=== PATIENT | female | born 1995 | race Caucasian/White ===

== ENCOUNTER → 2023-05-29 13:23 | Outpatient (CLI) | payer OTHER, SELFPAY ==
--- NOTE | 2023-05-29 13:24 | DI.US.S_ITS ---
PROCEDURE: US OB <= 14 WEEKS FETUS INDICATIONS: SIZE AND DATES OUTSIDE/PRIOR DATING DATA: Last menstrual period (LMP): 03/19/2023. LMP-based estimated date of delivery (WILL): 12/24/2023 First dating scan (date and location): 05/29/2023 Estimated date of delivery (WILL) from first dating scan: 12/16/2023. The calculations are made using the ultrasound WILL of 12/16/2023. TECHNIQUE: Real-time scanning was performed of the fetus and maternal pelvic organs, with image documentation. COMPARISON: None. FINDINGS: Embryo: 4.4 cm, 11 weeks 2 days Heart rate: 169 Maternal organs: Ovaries are obscured by bowel gas.. IMPRESSION: Living 1st trimester intrauterine with crown-rump length and heartbeat measuring 11 weeks 2 days. We strive to produce accurate, complete, and clear reports of imaging services. To assist us in improving patient care, this report was composed using standard report templates and voice recognition software. Therefore, it may contain abnormal punctuation, insertions and/or omissions. Occasional wrong-word or sound-alike substitutions may occur. Though we review the report and make efforts to correct it, we do recommend that the report be read carefully in proper context to recognize any text inaccuracies. Dictated by: Vishal Joshi M.D. on 05/29/2023 at 16:16 Approved by: Vishal Joshi M.D. on 05/29/2023 at 16:18
== END ==
PROVIDERS: PCP Student in an Organized Health Care Education/Training Program; Referring Provider Student in an Organized Health Care Education/Training Program; Visit Provider Student in an Organized Health Care Education/Training Program
DX: Z34.01 Encounter for supervision of normal first pregnancy, first trimester (principal); Z3A.11 11 weeks gestation of pregnancy
CPT/HCPCS: 76801

== ENCOUNTER → 2023-06-06 13:41 | Outpatient (CLI) | payer OTHER, SELFPAY ==
[2023-06-06 14:20] LABS: Appearance Urine UA CLEAR; Bilirubin Urine UA NEGATIVE (NEGATIVE); Color Urine UA YELLOW; Glucose Urine UA NEGATIVE (Negative); Ketones Urine UA 1+ (NEGATIVE); Leukocyte Esterase Urine UA NEGATIVE (NEGATIVE); Nitrite Urine UA NEGATIVE (Negative); Occult Blood Urine UA NEGATIVE (Negative); Protein Urine UA NEGATIVE (Negative); Urobilinogen Urine UA 0.2 E.U./dL (0.2)
[2023-06-06 14:20] LABS: Add Manual Diff / Slide Review NO; Basophils Absolute Auto 0 /uL (0-100); Basophils Percent Auto 0.2 % (0-2); Eosinophils Absolute Auto 100 /uL (0-450); Eosinophils Percent Auto 1.7 % (2-4); Hematocrit 36.6 % (36-46); Hemoglobin 12.5 g/dL (12.0-16.0); Lymphocytes Absolute Auto 1700 /uL (1100-4500); Lymphocytes Percent Auto 19.1 % (25-40); Mean Corpuscular Hemoglobin 29.6 PG (26-34); Mean Corpuscular Volume 86.8 fL (80-100); Monocytes Absolute Auto 500 /uL (0-900); Monocytes Percent Auto 5.4 % (3-14); Neutrophils Absolute Auto 6500 /uL (1500-7000); Neutrophils Percent Auto 73.6 % (50-75); Platelet Count 279 X10^3/uL (150-400); Red Blood Cell Count 4.22 X10^6/uL (4.0-5.2); Red Cell Distribution Width 13.6 % (11.6-14.8); White Blood Cell Count 8.8 X10^3/uL (4.5-11.0)
[2023-06-07 08:54] LABS: RPR Screen Non Reactive (Non Reactive); Varicella IgG Antibody 976 index (Immune >165)
[2023-06-07 17:38] LABS: Hepatitis B Surface Antigen NEGATIVE s/c (NEGATIVE)
[2023-06-07 17:54] LABS: HIV 1 & 2 Ab/Ag 4th Gen Combo NEGATIVE (NEGATIVE); Hep C Virus Ab w/Reflex Quant NEGATIVE s/c (NEGATIVE)
== END ==
PROVIDERS: PCP Student in an Organized Health Care Education/Training Program; Referring Provider Student in an Organized Health Care Education/Training Program; Visit Provider Student in an Organized Health Care Education/Training Program
DX: Z34.00 Encounter for supervision of normal first pregnancy, unspecified trimester (principal)
CPT/HCPCS: 36415; 80055; 81003; 86787; 86803; 86850; 86900; 86901; 87086; 87389

== ENCOUNTER → 2023-06-19 11:18 | Outpatient (CLI) | payer OTHER, SELFPAY ==
[2023-06-19 12:05] LABS: Miscellaneous to LabCorp NATERA KIT
== END ==
PROVIDERS: PCP Student in an Organized Health Care Education/Training Program; Referring Provider Student in an Organized Health Care Education/Training Program; Visit Provider Student in an Organized Health Care Education/Training Program
DX: Z34.81 Encounter for supervision of other normal pregnancy, first trimester (principal); Z82.8 Family history of other disabilities and chronic diseases leading to disablement, not elsewhere classified; Z13.79 Encounter for other screening for genetic and chromosomal anomalies; Z31.438 Encounter for other genetic testing of female for procreative management; Z36.0 Encounter for antenatal screening for chromosomal anomalies; Z3A.10 10 weeks gestation of pregnancy
CPT/HCPCS: 36415

== ENCOUNTER → 2023-07-31 14:20 | Outpatient (CLI) | payer OTHER, SELFPAY ==
--- NOTE | 2023-07-31 14:21 | DI.US.S_ITS ---
PROCEDURE: US OB >= 14 WEEKS FETUS INDICATIONS: Anatomy scan OUTSIDE/PRIOR DATING DATA: Last menstrual period (LMP): 03/19/2023 LMP-based estimated date of delivery (WILL): 12/24/2023 First dating scan (date and location): 05/29/2023 Estimated date of delivery (WILL) from first dating scan: 12/16/2023 The calculations are made using the working WILL of 12/16/2023. TECHNIQUE: Real-time scanning was performed of the fetus, with image documentation and biometric measurements. Endovaginal scanning: Not indicated COMPARISON: None. FINDINGS: General: A single living intrauterine gestation is present. Presentation: Breech Placenta: Placental position is posterior, without previa. Amniotic fluid index: 14.3 cm, normal range is 5-24 cm. Single deepest vertical pocket is 4.0 cm. heart rate: 141 beats per minute. Maternal cervical canal: 3.4 cm long. Normal lower limit is 2.5 cm. biometrics: Biparietal diameter: 4.3 cm, 19 weeks, 0 day Head circumference: 16.7 cm, 19 weeks, 3 days Abdominal circumference: 15.5 cm, 20 weeks, 5 days Femur length: 3.1 cm, 19 weeks, 4 days Clinically estimated gestational age: 20 weeks, 2 days Composite gestational age from present scan: 19 weeks, 5 days Estimated weight and percentile: 330 g, 33% Anatomic survey: Neuro: Ventricles are non-dilated at less than 10 mm. Cisterna magna is normal at 3-11 mm. Cerebellum is normal in size and morphology. Nuchal skin fold: Normal at less than 6 mm between 14-21 weeks gestational age. Face: Nose and lips, facial profile are normal. Spine: No evidence for spina bifida. Heart: 4-chambered heart is present, with normal ventricular outflow tracts. Diaphragm: Diaphragm is intact. Stomach: Left-sided stomach is present. Kidneys: No hydronephrosis. Normal is less than 5 mm in 2nd trimester, less than 7 mm in 3rd trimester. Cord: 3-vessel cord has orthotopic insertion. Bladder: Normal in size. Extremities: All 4 extremities identified. IMPRESSION: 1. Single live intrauterine gestation with fetus in breech presentation. heart rate is 141 beats per minute. Normal amount of amniotic fluid. JU equals 14.3 cm. Estimated weight is 33%. Normal growth. 2. Normal anatomic survey. We strive to produce accurate, complete, and clear reports of imaging services. To assist us in improving patient care, this report was composed using standard report templates and voice recognition software. Therefore, it may contain abnormal punctuation, insertions and/or omissions. Occasional wrong-word or sound-alike substitutions may occur. Though we review the report and make efforts to correct it, we do recommend that the report be read carefully in proper context to recognize any text inaccuracies. Dictated by: Jean-Pierre Garcia M.D. on 07/31/2023 at 16:48 Approved by: Jean-Pierre Garcia M.D. on 07/31/2023 at 16:50
== END ==
LOC: US 14:21
PROVIDERS: PCP Student in an Organized Health Care Education/Training Program; Referring Provider Student in an Organized Health Care Education/Training Program; Visit Provider Student in an Organized Health Care Education/Training Program
DX: Z36.89 Encounter for other specified antenatal screening (principal); Z3A.19 19 weeks gestation of pregnancy
CPT/HCPCS: 76811

== ENCOUNTER → 2023-09-11 15:35 | Outpatient (CLI) | payer OTHER, SELFPAY ==
[2023-09-19 12:48] LABS: Hematocrit 34.3 % (36-46); Hemoglobin 11.7 g/dL (12.0-16.0)
[2023-09-19 13:22] LABS: GTT (PREG) 1 Hour PP 50gm Dose 162 mg/dL (76-139)
== END ==
LOC: LAB 15:37
PROVIDERS: PCP Student in an Organized Health Care Education/Training Program; Referring Provider Family Medicine; Visit Provider Family Medicine
DX: Z34.92 Encounter for supervision of normal pregnancy, unspecified, second trimester (principal); Z3A.24 24 weeks gestation of pregnancy
CPT/HCPCS: 82950; 85014; 85018

== ENCOUNTER → 2023-10-24 09:57 | Outpatient (CLI) | payer OTHER, SELFPAY ==
[2023-10-24 12:09] LABS: Glucose Fasting Gestational 105 mg/dL (76-95)
[2023-10-24 12:18] LABS: Glucose 1 Hour Gest 197 mg/dL (76-180)
[2023-10-24 13:21] LABS: Glucose Tol Interp,Gestational INTERPRETATION
[2023-10-24 14:08] LABS: Glucose 3 Hour Gest 141 mg/dL (76-140)
[2023-10-24 14:27] LABS: Glucose 2 Hour Gest 128 mg/dL (76-155)
== END ==
PROVIDERS: PCP Student in an Organized Health Care Education/Training Program; Referring Provider Family Medicine; Visit Provider Family Medicine
DX: Z34.00 Encounter for supervision of normal first pregnancy, unspecified trimester (principal)
CPT/HCPCS: 36415; 82951; 82952

== ENCOUNTER → 2023-11-01 13:51 | Outpatient (CLI) | payer OTHER, SELFPAY ==
--- NOTE | 2023-11-01 16:46 | DIAB.GDA ---
Initial Gestational Diabetes Assessment Name: Araceli Love Date: 11/01/23 Time: 2-3p Dx: Gestational Diabetes Provider: Ruma WILL: 12/16/23 Weeks: 33 Araceli presents today for initial GDM visit. Reports FH of T2DM with both parents. Mother passed in June. Today she brings a [employer] brand meter because pharmacy brand meter/supplies were expensive, seemingly not covered by insurance, which seems inaccurate. Diet recall indicates high CHO intake. Has recently cut out soda, though occasionally has soda at work. 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 Replaced soda with sweetened iced tea, uses syrup to jag. Reports inconsistent schedule with eating. Today her main concerns is how to reduce risks to baby and reduce chances of c section per report. Diet Recall: 930-1030a: eng muff with PB or egg or steak with sweet tea 1-3p: at work, buckley salad; at home, left overs: meat, pasta x 1-2c sn: nothing or chips or 1/2c cheezits (give her reflux) OR q other week gummy worms 6-9p: steak or burger with 1-2c pasta OR 1/2-1c rice sn: nothing or 6 chocolates with sweetened sparkling water Radha: 20-24oz milk, 48-60oz water, 12oz soda occasionally, sweetened tea or sparkling water Limited veggies, though sometimes avocado, tomatoes, peas, onion. Some snacking on fruit, ie berries. Anthropometrics: Ht: 66-67 Wt: 202.5# 10/2023 at OB Prepregnancy wt: 150# reported Physical Activity: 30-60 min dog walks most days Self-Monitoring Blood Glucose: Brought meter today. Return demo indicated BG result of 130mg/dl 3 hours pc after 2 eng muffins with pb and sparkling water with syrup (70g CHO or more) Diabetes Medications: None Pertinent Labs: screen: 162mg/dl OGTT: 105H, 197H, 128, 141H Nutrition Rx: Carbohydrates: Daily: 180g Meal: 45g (60g max) lunch and dinner; 30g breakfast Snack: 15-30g Nutrition Diagnosis: Altered nutrition related lab value r/t GDM dx aeb recent OGTT Excessive CHO intake r/t nutrition knowledge deficit and new dx GDM aeb OGTT and diet recall Self monitoring deficit r/t knowledge deficit about SMBG aeb pt report Intervention: This participant was very receptive. Provided appropriate educational handouts. Discussed the following topics: GDM pathophysiology and impact of hyperglycemia on mom and baby Risk for T2DM for mom and baby in the future Ways to reduce risk T2DM Plate Method, meal timing, carb counting, pairing macronutrients and spreading out CHO for better BG management Blood glucose goals (FBG: <95 and 1 hour <140 mg/dL); importance of checking 4x per day (FBG and pc) Impact of macronutrients on blood glucose Recommended servings for carbohydrates at meals and snacks Brainstormed appropriate meal plan based on her food preferences Encouraged calling insurance regarding SMBG supplies Role of physical activity and following provider guidelines for safety Goals: check out sugar free beverages in moderation Try to eat q 3-4 hours Aim for 45-60g CHO at lunch and dinner Start checking BG 4x per day Call insurance regarding SMBG supplies Follow-up: ROXANN CHO follow-up in one week via messaging SMBG results and 2 weeks 1:1 appt Mayte Merino RDN, TAMMIE Certified Diabetes Care and Charge Entry T: [phone] F: [phone] [email or web address] Thank you for this referral
== END ==
PROVIDERS: PCP Student in an Organized Health Care Education/Training Program; Referring Provider Family Medicine
DX: O24.419 Gestational diabetes mellitus in pregnancy, unspecified control (principal); Z3A.33 33 weeks gestation of pregnancy; Z71.3 Dietary counseling and surveillance
CPT/HCPCS: 97802

== ENCOUNTER → 2023-11-14 15:10 | Outpatient (CLI) | payer OTHER, SELFPAY ==
[2023-11-15 16:18] LABS: Strep Grp B PCR NEG for Grp B Strep
== END ==
PROVIDERS: PCP Student in an Organized Health Care Education/Training Program; Visit Provider Student in an Organized Health Care Education/Training Program
DX: R82.71 Bacteriuria (principal); Z3A.35 35 weeks gestation of pregnancy
CPT/HCPCS: 87653

== ENCOUNTER → 2023-11-14 16:22 | Outpatient (CLI) | payer OTHER, SELFPAY ==
[2023-11-14 17:54] LABS: Add Manual Diff / Slide Review NO; Basophils Absolute Auto 0 /uL (0-100); Basophils Percent Auto 0.2 % (0-2); Eosinophils Absolute Auto 200 /uL (0-450); Eosinophils Percent Auto 1.1 % (2-4); Hematocrit 39.8 % (36-46); Hemoglobin 13.2 g/dL (12.0-16.0); Lymphocytes Absolute Auto 1900 /uL (1100-4500); Lymphocytes Percent Auto 14.2 % (25-40); Mean Corpuscular HGB Conc 33.2 % (30-36); Mean Corpuscular Hemoglobin 29.1 PG (26-34); Mean Corpuscular Volume 87.5 fL (80-100); Monocytes Absolute Auto 1000 /uL (0-900); Monocytes Percent Auto 7.3 % (3-14); Neutrophils Absolute Auto 10200 /uL (1500-7000); Neutrophils Percent Auto 77.2 % (50-75); Platelet Count 275 X10^3/uL (150-400); Red Blood Cell Count 4.55 X10^6/uL (4.0-5.2); Red Cell Distribution Width 14.3 % (11.6-14.8); White Blood Cell Count 13.2 X10^3/uL (4.5-11.0)
[2023-11-14 18:11] LABS: HEMOLYSIS < 15 (0-50); Potassium 3.8 mmol/L (3.4-5.1)
[2023-11-14 18:12] LABS: Alanine Aminotransferase 13 IU/L (<35); Albumin 3.6 g/dL (3.5-5.0); Albumin Globulin Ratio 1.2 (1.0-2.8); Alkaline Phosphatase 104 U/L (38-126); Aspartate Aminotransferase 20 IU/L (14-36); Bilirubin Total 0.4 mg/dL (0.2-1.3); Blood Urea Nitrogen 11 mg/dL (7-17); Calcium 8.9 mg/dL (8.4-10.2); Carbon Dioxide 23 mmol/L (22-32); Chloride 107 mmol/L (98-107); Estimated Glomerular Filt Rate > 60 mL/min (>60); Globulin 2.9 g/dL (1.7-4.1); Glucose 109 mg/dL (70-100); Sodium 132 mmol/L (137-145); Total Protein 6.5 g/dL (6.3-8.2)
--- NOTE | 2023-12-06 15:24 | DIAB.GDFU ---
Follow-up Gestational Diabetes Assessment Name: Araceli Love Date: 11/14/23 Time: 435-520p Dx: Gestational Diabetes Provider: Ruma WILL: 12/16/23 Weeks: 35 Araceli presents today for GDM visit. Received a new meter covered by insurance. Not needing to pay out of pocket for supplies now. Improved sleep recently, which improved FBG. Also reports some FBG not 8+ hours fasting. Reduced milk and cut out sugar beverages. Increased water. Diet Recall: 11a: huevos rancheros x 4 tortillas with egg and salsa OR icelandic yogurt with fruit and honey sn: low sugar ice cream 230-330p: goat varma with chickpeas and potato OR eggs, cheese, 1-2 tortillas 5-6p: veggies with dip OR handful of grapes Or pear OR caprese salad 9-11p: goat varma OR caprese salad OR fajita x 1-2 tortilla Radha: 80oz water, SF ICE drink, sometimes milk Anthropometrics: Ht: 66-67 Wt: 200# Today at OB Prepregnancy wt: 150# reported Physical Activity: Less dog walking, moving more at home and with a friend. Most activity is ADLs. Self-Monitoring Blood Glucose: Notices FBG are elevated with poor sleep. Last three days with better sleep FBG are in range. Encouraged her to keep a close eye on FBG and if elevated contact OB. Date Pre Post Pre Post Pre Post Notes 11/06 88 90 2h 116 5/1 105 154 120 96 2h 5/2 99 107 2h 131 96 5/3 105 116 117 123 5/4 97 131 106 145 5/5 90 115 2h 129 5/6 86 130 101 134 5/7 90 108 Diabetes Medications: None Pertinent Labs: screen: 162mg/dl OGTT: 105H, 197H, 128, 141H Nutrition Rx: Carbohydrates: Daily: 180g Meal: 45g (60g max) lunch and dinner; 30g breakfast Snack: 15-30g Nutrition Diagnosis: Altered nutrition related lab value r/t GDM dx aeb recent OGTT Excessive CHO intake r/t nutrition knowledge deficit and new dx GDM aeb OGTT and diet recall- improved Self monitoring deficit r/t knowledge deficit about SMBG aeb pt report - improved Intervention: This participant was very receptive. Provided appropriate educational handouts. Discussed the following topics: Recent blood sugar results and impact of food and hormones Role of sleep on BG Review of macronutrient recommendations during Benefits, resources, and nutrition for recommendations for nutrition and physical activity recommendations for T2DM risk reduction OGTT at 6-12 weeks Checking blood sugars twice per week (goal: fasting <100 mg/dL and 2 hour pc <140 mg/dL) until 6 week check-up HgA1c q 1-3 years. Goals: check out sugar free beverages in moderation- met Try to eat q 3-4 hours- met Aim for 45-60g CHO at lunch and dinner- met Start checking BG 4x per day - met Call insurance regarding SMBG supplies - met work on sleep hygeine- new Aim to be active everyday- new Follow-up: ROXANN CHO follow-up prn. Given change in FBG, would rec low threshold for insulin therapy prn. If FBG continue to be in goal with improved sleep no need to medication intervention. Discussed this in depth with pt and she agrees to contact provider if FBG start trending >95 2-3 x per week or more. Mayte Merino, ROXANN, CDCES Certified Diabetes Care and Creative Services Specialist T: [phone] F: [phone]
== END ==
PROVIDERS: PCP Student in an Organized Health Care Education/Training Program; Referring Provider Student in an Organized Health Care Education/Training Program
DX: R10.11 Right upper quadrant pain (principal); R82.71 Bacteriuria; Z3A.35 35 weeks gestation of pregnancy
CPT/HCPCS: 36415; 80053; 85025; 87653

== ENCOUNTER → 2023-11-21 07:21 | Outpatient (CLI) | payer OTHER, SELFPAY ==
--- NOTE | 2023-11-21 07:30 | DI.US.S_ITS ---
PROCEDURE: US OB FOLLOW UP INDICATIONS: Growth scan needed for Gestational Diabetes OUTSIDE/PRIOR DATING DATA: Last menstrual period (LMP): March 19, 2023. LMP-based estimated date of delivery (WILL): December 24, 2023. First dating scan (date and location): May 29, 2023. Estimated date of delivery (WILL) from first dating scan: December 16, 2023 TECHNIQUE: Real-time scanning was performed of the fetus, with image documentation and biometric measurements. Endovaginal scanning: Not performed COMPARISON: None. FINDINGS: General: A single living intrauterine gestation is present. Presentation: Vertex. Placenta: Placental position is posterior , without previa. Amniotic fluid index: 8.8 cm, normal range is 5-24 cm. Single deepest vertical pocket is 2.9 cm. heart rate: 150 beats per minute. Maternal cervical canal: 3.5 cm long. Normal lower limit is 2.5 cm. biometrics: Biparietal diameter: 9.1 cm, 36 weeks, 5 days Head circumference: 32.2 cm, 36 weeks 2 days Abdominal circumference: 32.4 cm, 36 weeks 2 days Femur length: 7.1 cm, 36 weeks 3 days Clinically estimated gestational age: 36 weeks 3 days Composite gestational age from present scan: 36 weeks 3 days Estimated weight and percentile: 2917 g, 51% Other: Not applicable. IMPRESSION: 1. Single live intrauterine gestation with a composite gestational age of 36 weeks 3 days which is concordant with dates by initial scan. 2. Estimated weight percentile is 51%. We strive to produce accurate, complete, and clear reports of imaging services. To assist us in improving patient care, this report was composed using standard report templates and voice recognition software. Therefore, it may contain abnormal punctuation, insertions and/or omissions. Occasional wrong-word or sound-alike substitutions may occur. Though we review the report and make efforts to correct it, we do recommend that the report be read carefully in proper context to recognize any text inaccuracies. Dictated by: Balbina Pulliam M.D. on 11/21/2023 at 8:57 Approved by: Balbina Pulliam M.D. on 11/21/2023 at 9:00
== END ==
LOC: US 07:21
PROVIDERS: PCP Student in an Organized Health Care Education/Training Program; Referring Provider Student in an Organized Health Care Education/Training Program; Visit Provider Student in an Organized Health Care Education/Training Program
DX: Z36.4 Encounter for antenatal screening for fetal growth retardation (principal); O24.419 Gestational diabetes mellitus in pregnancy, unspecified control; Z3A.36 36 weeks gestation of pregnancy
CPT/HCPCS: 76816

== ENCOUNTER 2023-12-14 11:37 | Observation (INO) | payer OTHER, SELFPAY | END 2023-12-14 12:34 | disposition home or self-care (01) | LOC: LABOR 12:41 | PROVIDERS: Admitting Provider Student in an Organized Health Care Education/Training Program; PCP Student in an Organized Health Care Education/Training Program; Referring Provider Student in an Organized Health Care Education/Training Program; Visit Provider Student in an Organized Health Care Education/Training Program | DX: O36.8130 Decreased fetal movements, third trimester, not applicable or unspecified (principal); Z3A.39 39 weeks gestation of pregnancy | CPT/HCPCS: 59025; G0378; G0379 ==

== ENCOUNTER 2023-12-16 05:39 | Observation (INO) | payer OTHER, SELFPAY | END 2023-12-16 09:45 | disposition home or self-care (01) | LOC: LABOR 10:15 | PROVIDERS: Admitting Provider Student in an Organized Health Care Education/Training Program; PCP Student in an Organized Health Care Education/Training Program; Referring Provider Student in an Organized Health Care Education/Training Program; Visit Provider Student in an Organized Health Care Education/Training Program | DX: O47.1 False labor at or after 37 completed weeks of gestation (principal); O24.419 Gestational diabetes mellitus in pregnancy, unspecified control; Z3A.40 40 weeks gestation of pregnancy | CPT/HCPCS: 59025; 59050; G0378; G0379 ==

== ENCOUNTER 2023-12-17 11:22 | Inpatient (IN) | payer OTHER, SELFPAY ==
[2023-12-17 12:43] LABS: Add Manual Diff / Slide Review NO; Basophils Absolute Auto 200 /uL (0-100); Eosinophils Absolute Auto 200 /uL (0-450); Eosinophils Percent Auto 0.8 % (2-4); Hematocrit 39.4 % (36-46); Hemoglobin 13.3 g/dL (12.0-16.0); Lymphocytes Absolute Auto 2200 /uL (1100-4500); Mean Corpuscular HGB Conc 33.8 % (30-36); Mean Corpuscular Hemoglobin 29.2 PG (26-34); Mean Corpuscular Volume 86.3 fL (80-100); Monocytes Absolute Auto 1400 /uL (0-900); Monocytes Percent Auto 7.3 % (3-14); Neutrophils Absolute Auto 14700 /uL (1500-7000); Neutrophils Percent Auto 78.9 % (50-75); Platelet Count 277 X10^3/uL (150-400); Red Blood Cell Count 4.56 X10^6/uL (4.0-5.2); Red Cell Distribution Width 14.7 % (11.6-14.8); White Blood Cell Count 18.6 X10^3/uL (4.5-11.0)
[2023-12-17] MEDS: LACTATED RINGERS 1,000 ML 100 ML IV ×4 (12:45→19:05)
--- NOTE | 2023-12-17 13:00 | P.HPOB_ITS ---
OB HPI Date/Time Date of admission: 12/17/23 Date Patient Seen: 12/17/23 Time Patient Seen: 01:00 History of Present Condition Chief complaint: WILL Calculator 2 Estimated Delivery Date Method Current WG Current Estimate 12/16/23 Ultrasound #1 40w 1d Other Estimates 12/24/23 LMP (Certain) 39w 0d : 1 Para: 0 Narrative: G1 at 40w1d here with ongoing contractions for past 36 hours. She was seen yesterday in the birthing center and was found to be fingertip. She was sent home and is back today with cervical progression to 4 cm and worsening contractions. is complicated by GDMA1. She reports no loss of fluid or bleeding. Good movement. care: good care Dating criteria OB: based on LMP only Ultrasounds: normal 1st trimester US and normal mid trimester US Obstetrical complications: gestational diabetes Medical complications OB: none Preadmission Labs Last OB Lab Results: 2 Blood Type O Positive 06/06/23 13:48 Antibody Screen Negative 06/06/23 13:48 Hematocrit 39.4 % (36-46) 12/17/23 12:25 Hemoglobin 13.3 g/dL (12.0-16.0) 12/17/23 12:25 Hepatitis B Surface Antigen Negative s/c (NEGATIVE) 06/06/23 13 :48 Hepatitis C Antibody Negative s/c (NEGATIVE) 06/06/23 13:48 Rubella Antibody 200.0 IU/mL (>15) 06/06/23 13:48 Varicella-Zoster IgG Antibody 976 index (Immune >165) 06/06/23 13:48 Glucose 1 Hour 162 mg/dL (76-139) H 09/19/23 12:15 Group B Streptococcus (PCR) Neg for grp b strep 11/14/23 15:10 Glucose Tolerance Testin hr Genetic Screens: Cell-free DNA: Normal Evaluation Evaluation Baseline heart rate: 145 Variability: Average (6-10) monitor accelerations: Present Monitor Decelerations: Absent Contraction Frequency (minutes): 10 Category of Tracing: Reactive Status: Category l Dilation (cm): 4 Effacement (%): 80 Dilation: 3-4 cm Effacement: >/=80% station: -1 Position of cervix: mid Consistency: soft Barbour score: 10 [facility] Medical History (Updated 11/14/23 @ 16:04 by Ashley Spencer MD) Gestational diabetes Depression Anxiety Acne Vasculitis Surgical History (Updated 05/08/23 @ 09:05 by Hoa Levy, RN) No pertinent past surgical history Family History (Updated 05/08/23 @ 09:47 by Hoa Levy, RN) Mother Fibromyalgia Diabetes mellitus Osteoarthritis Cervical cancer Kidney failure Antibiotic-resistant bacterial infection Irritable bowel syndrome Clostridioides difficile carrier Sister Neurofibromatosis Cancer Brain tumor Developmental disability Brother Schwannomatosis Father Diabetes mellitus Irritable bowel syndrome Rectal cancer Abdominal hernia Depression Grandmother Lung cancer Grandfather Alcoholism Lung cancer Brother Depression Anxiety Aunt Breast cancer Uncle Kidney failure Diabetes mellitus Social History marital status: number of children: 0 household members: spouse and family lives independently: Yes caregiver/support person: Yes housing: house pets and animals: Yes (2 cats, guinea pig, managing pet care) education level: college occupational status: employed current occupational exposures/hazards: No special jennifer needs: No travel history: over 6 months ago seatbelt use: always water heater temp set < 120 deg: Yes working smoke detector in home: Yes fire extinguisher in home: No carbon monox detector in home: Yes firearms in home: Yes (mother's gun, pt is unsure how it is kept. Will get a gun safe.) do you feel safe at home: Yes Smoking Status: Former smoker second hand exposure: Yes ( vapes but not around pt) alcohol intake: former substance use type: marijuana during the past year weight has: increased > 10 lbs well-balanced diet: about half the time daily servings fruits/ve-4 caffeine: Yes (12 oz soft drink, occasional coffee daily) Type(s) of exercise: none Meds Home Medications and Allergies Home Medications Medication Instructions Recorded Confirmed Type vitamin-ferrous sulfate tab PO 05/08/23 12/12/23 History 27 mg iron-folic acid 0.8 mg tablet albuterol sulfate 90 mcg/actuation 2 puff inhalation Q6H PRN 05/22/23 12/12/23 Rx aerosol inhaler shortness of breath or wheezing #8.5 grams ondansetron 4 mg disintegrating 4 mg PO Q8H PRN nausea and 10/23/23 12/12/23 Rx tablet vomiting #30 tabs Glucometer #1 ea 10/27/23 12/12/23 Rx glucose test strips #400 ea 10/27/23 12/12/23 Rx lancet #400 ea 10/27/23 12/12/23 Rx sharps container #1 10/27/23 12/12/23 Rx Allergies Allergy/AdvReac Type Severity Reaction Status Date / Time No Known Drug Allergies Allergy Verified 12/12/23 14:48 OB Exam Vital signs Blood Pressure: 127/78 Pulse Rate: 94 Objective Labs 12/17/23 12:25 12/17/23 12:25 Assessment and Plan Assessment and Plan Assessment and Plan narrative: G1 at 40w1d here with spontaneous labor.. complicated by GDMA1. GBS negative. /-1. Membranes intact. -proceed augmentation with pitocin as contractions have spaced -patient requesting epidural at this time
[2023-12-17 13:08] LABS: Alanine Aminotransferase 13 IU/L (<35); Albumin 3.6 g/dL (3.5-5.0); Albumin Globulin Ratio 1.2 (1.0-2.8); Alkaline Phosphatase 137 U/L (38-126); Aspartate Aminotransferase 19 IU/L (14-36); BUN Creatinine Ratio 16.3 (6-22); Bilirubin Total 0.4 mg/dL (0.2-1.3); Blood Urea Nitrogen 8 mg/dL (7-17); Calcium 9.2 mg/dL (8.4-10.2); Carbon Dioxide 19 mmol/L (22-32); Chloride 110 mmol/L (98-107); Estimated Glomerular Filt Rate > 60 mL/min (>60); Glucose 108 mg/dL (70-100); HEMOLYSIS < 15 (0-50); Potassium 4.1 mmol/L (3.4-5.1); Sodium 134 mmol/L (137-145); Total Protein 6.6 g/dL (6.3-8.2)
[2023-12-17 13:16] VITALS: BP 127/78; PULSE 94
--- NOTE | 2023-12-17 14:08 | PM.AN.REGBLK ---
Regional Block Pre-procedure Procedure: Continuous Lumbar Epidural for L&D (with dural puncture) Attending OB provider: Ashley Spencer PMH/JOVANNY narrative: 28yo female at 40 weeks 1 day in labor requesting epidural. See pre-anesthesia evaluation for further details. ASA Class: II Labs: Hct 39.4 % (36-46) 12/17/23 12:25 Plt Count 277 X10^3/uL (150-400) 12/17/23 12:25 Medications: Current Medications Generic Name Dose Route Start Last Admin Trade Name Freq PRN Reason Stop Dose Admin Carboprost Tromethamine 250 mcg 12/17/23 13:06 Carboprost 250 Mcg/Ml Ampul IM Q90M PRN Bleeding Diphenhydramine HCl 25 mg 12/17/23 14:06 Diphenhydramine 50 Mg/Ml Vial IV Q10M PRN Pruritis Ephedrine Sulfate 10 mg 12/17/23 14:06 Ephedrine 50 Mg/Ml Vial IV Q5M PRN Blood pressure decrease more than 20% of baseline. Fentanyl 50 mcg 12/17/23 13:06 Fentanyl 100 Mcg/2 Ml Inj IV Q1H PRN Pain, Moderate (4-6) Lactated Ringer's 1,000 mls @ 100 mls/hr 12/17/23 13:15 Lactated Ringers IV CONT DIONICIO Oxytocin/Lactated Ringer's 30 unit in 500 mls @ 200 mls/hr 12/17/23 13:06 Oxytocin Premix IV CONT PRN Bleeding Protocol Tranexamic Acid 1,000 mg/ 100 mls @ 200 mls/hr 12/17/23 13:06 Sodium Chloride IV NOW PRN Bleeding Oxytocin/Lactated Ringer's 30 unit in 500 mls @ 2 mls/hr 12/17/23 13:15 Oxytocin Premix IV TITRATE DIONICIO Protocol 2 MILLIUNIT/MIN Lactated Ringer's 1,000 mls @ 100 mls/hr 12/17/23 13:15 Lactated Ringers IV CONT DIONICIO FENT 2MCG/ML BUPIV 0.125% EPI 200 mcg in 100 mls @ 6 mls/hr 12/17/23 14:15 Fentanyl/Bupiv/Ns 2mcg/Ml - 0.125% EPIDURAL CONT DIONICIO Lidocaine HCl 20 ml 12/17/23 13:06 Lidocaine 1% 20 Ml INJ INTRA-OP PRN Post Delivery Methylergonovine Maleate 0.2 mg 12/17/23 13:06 Methylergonovine 0.2 Mg Tablet PO Q6HR PRN Heavy Bleeding Methylergonovine Maleate 0.2 mg 12/17/23 13:06 Methylergonovine 0.2 Mg/Ml Vial IM NOW PRN Bleeding Misoprostol 800 mcg 12/17/23 13:06 Misoprostol 200 Mcg Tablet DC NOW PRN Bleeding Misoprostol 400 mcg 12/17/23 13:06 Misoprostol 200 Mcg Tablet SL NOW PRN Bleeding Nalbuphine HCl 2.5 mg 12/17/23 14:06 Nalbuphine 20 Mg/Ml Ampul IV Q10M PRN Pruritis Naloxone HCl 0.2 mg 12/17/23 13:06 Naloxone 0.4 Mg/Ml Vial IV Q2MIN PRN Opiate Reversal Ondansetron HCl 4 mg 12/17/23 13:06 Ondansetron 4 Mg/2 Ml Inj IV Q4HR PRN Nausea And Vomiting Oxytocin 10 unit 12/17/23 13:06 Oxytocin 10 Unit/Ml Vial IM NOW PRN Bleeding Sodium Chloride 10 ml 12/17/23 21:00 Sodium Chloride 0.9% Flush IV BID DIONICIO Sodium Chloride 10 ml 12/17/23 13:06 Sodium Chloride 0.9% Flush IV PRN PRN Flush Sodium Chloride 10 ml 12/17/23 21:00 Sodium Chloride 0.9% Flush IV BID DIONICIO Sodium Chloride 10 ml 12/17/23 14:06 Sodium Chloride 0.9% Flush IV PRN PRN Flush Allergies: Allergies Allergy/AdvReac Type Severity Reaction Status Date / Time No Known Drug Allergies Allergy Verified 12/12/23 14:48 Procedure Insertion date: 12/17/23 Insertion time: 13:47 Prep/Local: 1% lidocaine (Chloraprep) Interspace: L3-4 Patient position: sitting (Time-out at 13:40) Needle: 18 gauge Hustead (22g 5 Yumi for dural puncture prior to catheter placement) Loss of resistance with: saline SABRA at (cm): 6 Catheter placed at SKIN (cm): 14 Catheter in SPACE (cm): 8 Insertion: No CSF, No Blood, No Paresthesia with insertion, No Paresthesia with injection and No Test dose reaction Initial Medications TEST DOSE time: 13:48 TEST DOSE: 1.5% lidocaine with epinephrine 1:200k (mL): 3 BOLUS DOSE time: 13:49 BOLUS DOSE (mL): 2 BOLUS DOSE med: other (Same as test dose; also gave 3 ml of 0.125% bupiv with fentanyl at 14:00 after infusion connected to epidural catheter) Infusion INFUSION: 0.125% bupivacaine and with fentanyl 2 mcg/mL Initial rate (mL/hr): 8 Subsequent interventions: 14:05 Pt reports contraction pain decreased from 8/10 to 1-2/10. Able to move BLE and appears comfortable. Post-procedure Anesthesia date START: 12/17/23 Anesthesia time START: 14:40 Anesthesia date END: 12/17/23 Anesthesia time END: 21:58 Post-procedure Anesthesia Assessment: Yes CV function: HR/BP stable, Yes Resp function: RR/sat/airway adequate, Yes Post-op hydration adequate, Yes Pain control adequate, Yes Nausea & vomiting absent, Yes Temperature > 36 C, Yes Mental status appropriate and No Anesthesia complications
[2023-12-17] MEDS: OXYTOCIN PREMIX 30 UNIT/500 ML PLAST..BAG IV (14:28)
--- NOTE | 2023-12-17 17:06 | PM.OBPNLAB ---
Date/Time Date Patient Seen: 12/17/23 Time Patient Seen: 17:00 Pain Control Pain control: epidural Pelvic Exam Dilation (cm): 7 Effacement (%): 80 station: -1 Amniotic membrane status: Ruptured Comments: AROM at 1700 Contractions Pitocin rate (mU/min): 4 Contraction frequency (min): 4 Contraction duration (min): 1 Contraction pattern: Regular Contraction intensity: Moderate Status status: Category l Heart Rate Baseline: 145 Monitor Accelerations: Present Monitor Decelerations: Late (one late following rupture of membranes) Monitor Variability: Moderate Assessment and Plan Assessment: active labor Plan: continuous present management
[2023-12-17 17:49] VITALS: BP 132/69
[2023-12-17] MEDS: FENT 2MCG/ML BUPIV 0.125% EPI 200 MCG/100 ML PLAST..BAG 6 MCG EPIDURAL (19:04)
[2023-12-17] MEDS: FAMOTIDINE 20 MG/2 ML VIAL IV (21:42)
--- NOTE | 2023-12-17 22:52 | P.PCNOB_ITS ---
Events: Gestational Diabetes Labor & Delivery Delivery date: 12/17/23 Delivery augmentation: rupture of membranes and pitocin Delivery monitor: external FHT Route of delivery: L&D Laceration Description: Perineal - 3rd Degree Delivery repair: vicryl Estimated blood loss (mL): 120 Anesthesia Type: Epidural Narrative: Patient was found to be complete at approximately 6:45pm. She started pushing shortly after 7pm. She pushed effectively for 3 hours. With ongoing efforts, isabela by delivered in the OA position with terminal meconium. Pitocin was started 2 minutes after delivery. After the cord had stopped pulsating, it was double clamped and the father cut the cord. Placeta delivered with external fundal massage at 15 minutes post delivery. There was a third degree laceration that was repaired with vicryl suture. A finger was placed in the anus to ensure there was no 4th degree laceration. Fundus firm after repair was complete. Routine care. Plan for aftercare: Routine care
[2023-12-18] MEDS: ACETAMINOPHEN 325 MG TABLET 650 MG PO ×2 (00:42→10:07)
[2023-12-18] MEDS: IBUPROFEN 600 MG TABLET PO ×2 (00:43→10:06)
[2023-12-18] MEDS: DERMOPLAST SPRAY 20% 60 ML 1 SPRAY TOP (00:43)
[2023-12-18] MEDS: MAGNESIUM HYDROXIDE 30 ML UDC PO (00:43)
[2023-12-18] MEDS: OXYCODONE IR 5 MG TABLET PO (00:43)
[2023-12-18] MEDS: PRENATAL VIT,CALC/IRON/FOLIC 1 TABLET 1 TAB PO (10:06)
[2023-12-18] MEDS: DOCUSATE 100 MG CAPSULE PO (10:06)
--- NOTE | 2023-12-18 10:52 | PM.OBDS.1 ---
Discharge Providers Provider Date of admission: 12/17/23 11:22 Discharge Date: 12/18/23 Primary care physician: Ashley Spencer MD Consults: 12/17/23 13:06 Consult to Anesthesiology Urgent Comment: Consulting Provider: Anesthesiologist Reason for consultation: Epidural 12/18/23 22:49 Consult to Personal Service Workers Routine Comment: Discharge provider: Ashley Spencer MD Summary Hospital Course Date Patient Seen: 12/18/23 Time Patient Seen: 09:30 Diagnoses: Term , normal spontaneous vaginal delivery Hospital Course: Patient presented with spontaneous labor and borderline elevated blood pressures. Labs normal without signs of pre-eclampsia. Contractions spaced, pitocin started. AROM performed with clear fluid. Patient progressed to complete and pushed for 3 hours. She had a 3rd degree tear that was repaired with suture. She recovered well and pain was well tolerated. She is without difficulty. Peripartum Data Infant Delivery Method: Natural Vaginal Laceration Description: Perineal - 3rd Degree complications: none Discharge Diagnosis (1) Vaginal delivery: Status: Acute Status at Discharge Cognitive/behavioral status at discharge: oriented Functional status at discharge: independent ambulation Overall status at discharge: patient is back to baseline Time Spent with Patient Time attestation: Total time spent providing and/or coordinating discharge services: Time spent: Greater than 30 minutes Objective Labs 12/17/23 12:25 12/17/23 12:25 Labs: Laboratory Results - last 24 hr 12/17/23 12:25 WBC 18.6 H RBC 4.56 Hgb 13.3 Hct 39.4 MCV 86.3 MCH 29.2 MCHC 33.8 RDW 14.7 Plt Count 277 Neut % (Auto) 78.9 H Lymph % (Auto) 12.0 L [place] % (Auto) 7.3 Eos % (Auto) 0.8 L Baso % (Auto) 1.0 Neut # (Auto) 43837 H Lymph # (Auto) 2200 [place] # (Auto) 1400 H Eos # (Auto) 200 Baso # (Auto) 200 H Sodium 134 L Potassium 4.1 Chloride 110 H Carbon Dioxide 19 L BUN 8 Creatinine 0.49 L Estimated GFR > 60 BUN/Creatinine Ratio 16.3 Glucose 108 H Calcium 9.2 Total Bilirubin 0.4 AST 19 ALT 13 Alkaline Phosphatase 137 H Total Protein 6.6 Albumin 3.6 Globulin 3.0 Albumin/Globulin Ratio 1.2 Blood Type O Positive Antibody Screen Negative Exam Narrative Exam Narrative: Breathing easily. Fundus firm at umbilicus. Normal lochia. Discharge Plan Discharge Plan Patient Disposition: Home Discharge orders & Medications Prescriptions: New acetaminophen 325 mg Tablet 650 mg PO Q6HR PRN (Reason: Pain, Mild (1-3)) Qty: 60 0RF docusate sodium 100 mg Capsule 100 mg PO DAILY Qty: 60 0RF ibuprofen 600 mg Tablet 600 mg PO Q6HR PRN (Reason: Pain, Mild (1-3)) Qty: 60 0RF Continued ondansetron 4 mg tablet,disintegrating 4 mg PO Q8H PRN (Reason: nausea and vomiting) Qty: 30 0RF albuterol sulfate 90 mcg/actuation HFA aerosol inhaler 2 puff inhalation Q6H PRN (Reason: shortness of breath or wheezing) Qty: 8.5 3RF vit-ferrous sulfat-FA 27 mg iron- 0.8 mg tablet 1 tab PO DAILY Discontinued (DME) lancet See Rx Instructions .ROUTE .MEDSUPPLY Qty: 400 0RF Rx Instructions: to test glucose 4 times daily (DME) Glucometer See Rx Instructions .Route .MEDSUPPLY Qty: 1 0RF Rx Instructions: To test blood sugars 4 times daily for gestational diabetes (DME) glucose test strips See Rx Instructions .ROUTE .MEDSUPPLY Qty: 400 0RF Rx Instructions: to test 4 times daily (DME) sharps container See Rx Instructions .ROUTE .MEDSUPPLY Qty: 1 1RF Rx Instructions: for glucose supplies Follow up/Referrals: Ashley Spencer MD [Primary Care Provider] - Visit Report/Discharge Packet Stand Alone Forms: Patient Portal/API, Stroke Signs & Symptoms Discharge Data Primary Care Provider: Ashley Spencer
[2023-12-18 18:08] VITALS: BP 122/75; PULSE 98; RESP 15; TEMP 36.7
== END 2023-12-18 17:55 | disposition home or self-care (01) | DRG 768 ==
PROVIDERS: Admitting Provider Student in an Organized Health Care Education/Training Program; PCP Student in an Organized Health Care Education/Training Program; Referring Provider Student in an Organized Health Care Education/Training Program; Visit Provider Student in an Organized Health Care Education/Training Program
DX: O24.429 Gestational diabetes mellitus in childbirth, unspecified control (principal); Z37.0 Single live birth; O70.20 Third degree perineal laceration during delivery, unspecified; O47.1 False labor at or after 37 completed weeks of gestation; Z3A.40 40 weeks gestation of pregnancy; O76 Abnormality in fetal heart rate and rhythm complicating labor and delivery; O24.419 Gestational diabetes mellitus in pregnancy, unspecified control
CPT/HCPCS: 36415; 59025; 59050; 80053; 85025; 86850; 86900; 86901; G0379; J2590